=== PATIENT | male | born 1980 | race African-American/Black ===

== ENCOUNTER 2018-11-18 18:17 | Inpatient (IN) ==
[2018-11-18 18:50] LABS: Basophils % 0.8 % (0.0-0.8); Hematocrit 40.7 VOL% (42.0-52.0); Hemoglobin 13.4 GM/DL (14.0-18.0); Immature Granulocytes % 0.3 %; Immature Granulocytes Absolute 0.01 #; Lymphocytes # 0.7 10*3/uL (1.4-4.0); Lymphocytes % 19.5 % (21.2-54.2); Mean Corpuscular HGB Conc 32.9 GM/DL (32-36); Mean Corpuscular Hemoglobin 34 PG (27-34); Mean Platelet Volume 11.5 FL (9.6-12.0); Monocytes # 0.3 10*3/uL (0.11-0.8); Monocytes % 9.2 % (1.7-12.7); Neutrophils # 2.5 10*3/uL (1.4-7.4); Neutrophils % 70.2 % (38.7-73.9); Platelet Count 133 T/CUMM (130-400); Red Blood Count 3.99 MC/CUMM (3.8-5.5); Red Cell Distribution Width 13.2 % (9.3-17.3); White Blood Count 3.6 T/CUMM (4-12)
[2018-11-18 19:16] LABS: Albumin 4.1 G/DL (3.4-5.0); Bilirubin,Total 0.8 MG/DL (0.2-1.0); Calcium 9.2 MG/DL (8.5-10.1); Osmolality,Calculated 276.4 MOS/KG (273-304); Potassium 3.7 MMOL/L (3.5-5.1); Total Protein 8.7 G/DL (6.4-8.3)
[2018-11-18 19:40] LABS: Apearance,Urine CLEAR (Clear); Bilirubin,Urine Negative (Negative); Blood, Urine Negative (Negative); Glucose,Urine (UA) Negative (Negative); Hyaline Casts,Urine 3 /LPF (0-3); Ketones,Urine 5 mg/dL (Negative); Mucus,Urine Occasional /LPF (Occasional); Nitrite,Urine Negative (Negative); Protein,Urine 100 MG/DL; RBC,Urine 1 /HPF (0-4); Squamous Epithelial Cell,Urine Occasional /HPF (0-10); Urine Specific Gravity 1.028 (1.001-1.035); WBC,Urine 1 /HPF (0-6)
[2018-11-18 19:41] LABS: Urine Color Yellow (Yellow)
[2018-11-18 19:44] LABS: Barbiturates Screen,Urine Negative (Negative); Benzodiazepines Screen,Urine Negative (Negative); Cannabinoid Screen,Urine Negative (Negative); Opiate Screen,Urine Negative (Negative); Phencyclidine Screen,Urine Negative (Negative)
[2018-11-18] MEDS ORDERED: LORazepam 2 MG/1 ML VIAL IV STA (21:02)
[2018-11-18] MEDS ORDERED: hydrALAZINE 20 MG/1 ML VIAL IV STA (21:08)
[2018-11-18] MEDS ORDERED: chlordiazePOXIDE 25 MG CAPSULE PO ONE (21:09)
[2018-11-18] MEDS ORDERED: THIAMINE INJ 100 MG, FOLIC ACID INJ 1 MG, MAGNESIUM SULF INJ 2 GM, MULTIVITAMIN INJ 10 ... IV ONE (21:10)
[2018-11-18] MEDS ORDERED: ONDANSETRON 4 MG TABLET PO PRN (21:58)
[2018-11-18] MEDS ORDERED: DICYCLOMINE 10 MG CAPSULE PO PRN (21:58)
[2018-11-18] MEDS ORDERED: METHOCARBAMOL 500 MG TABLET PO PRN (21:58)
[2018-11-18] MEDS ORDERED: LORazepam 2 MG/1 ML VIAL IV PRN ×2 (21:58)
[2018-11-18] MEDS ORDERED: HydrOXYzine PAMOATE 25 MG CAPSULE PO PRN (21:58)
[2018-11-18] MEDS ORDERED: ONDANSETRON 4 MG/2 ML VIAL IV PRN (21:58)
[2018-11-18] MEDS ORDERED: NITROGLYCERIN SL 0.4 MG TABLET SL PRN (22:26)
[2018-11-18] MEDS ORDERED: MORPHINE 4 MG/1 ML VIAL IV PRN (22:26)
[2018-11-18 22:36] LABS: PT Patient Result 10.5 SECS
[2018-11-19] MEDS: ENOXAPARIN 40 MG/0.4 ML SYRINGE SUBCUT SCH ×2 (00:55→21:39)
[2018-11-19 01:32] LABS: Basophils % 0.6 % (0.0-0.8); Eosinophils % 0.3 % (0.00-10.9); Hematocrit 37.6 VOL% (42.0-52.0); Hemoglobin 12.4 GM/DL (14.0-18.0); Immature Granulocytes % 0.3 %; Immature Granulocytes Absolute 0.01 #; Lymphocytes # 1.1 10*3/uL (1.4-4.0); Lymphocytes % 34.1 % (21.2-54.2); Mean Corpuscular Hemoglobin 33 PG (27-34); Mean Corpuscular Volume 100.5 FL (87-102); Monocytes # 0.4 10*3/uL (0.11-0.8); Monocytes % 10.8 % (1.7-12.7); Neutrophils # 1.7 10*3/uL (1.4-7.4); Neutrophils % 53.9 % (38.7-73.9); Platelet Count 117 T/CUMM (130-400); Red Blood Count 3.74 MC/CUMM (3.8-5.5); Red Cell Distribution Width 12.9 % (9.3-17.3); White Blood Count 3.2 T/CUMM (4-12)
[2018-11-19 01:54] LABS: Albumin 3.5 G/DL (3.4-5.0); Bilirubin,Total 0.8 MG/DL (0.2-1.0); Calcium 8.3 MG/DL (8.5-10.1); Osmolality,Calculated 271.7 MOS/KG (273-304); Total Protein 7.5 G/DL (6.4-8.3)
[2018-11-19] MEDS ORDERED: MAGNESIUM SULF RIDER 4 GM in PREMIX 1 EACH IV PRN (02:17)
[2018-11-19] MEDS ORDERED: MAGNESIUM SULF RIDER 2 GM in PREMIX 1 EACH IV PRN (02:17)
[2018-11-19] MEDS: chlordiazePOXIDE 25 MG CAPSULE PO SCH ×4 (02:50→21:39)
[2018-11-19] MEDS: POTASSIUM CHLORIDE 20 MEQ TABLET PO PRN ×4 (02:50→09:01)
[2018-11-19] MEDS: SODIUM CHLORIDE 0.9% 1,000 ML IV SCH ×2 (07:30→20:50)
[2018-11-19] MEDS: MULTIVITAMIN (CENTRUM) TABLET PO SCH (09:00)
[2018-11-19] MEDS: THIAMINE 100 MG TABLET PO SCH (09:00)
[2018-11-19] MEDS: FOLIC ACID 1 MG TABLET PO SCH (09:00)
[2018-11-19] MEDS: LISINOPRIL/HCTZ 20-12.5 MG TABLET PO SCH (09:00)
[2018-11-19] MEDS: ACETAMINOPHEN 500 MG TABLET PO PRN ×2 (11:09→17:40)
[2018-11-20] MEDS: traZODone 50 MG TABLET PO PRN ×2 (00:30→21:39)
[2018-11-20] MEDS: chlordiazePOXIDE 25 MG CAPSULE PO SCH ×3 (04:00→18:34)
[2018-11-20 06:17] LABS: Basophils % 0.7 % (0.0-0.8); Eosinophils # 0.1 10*3/uL (0.0-0.87); Eosinophils % 2.5 % (0.00-10.9); Hematocrit 34.5 VOL% (42.0-52.0); Hemoglobin 11.2 GM/DL (14.0-18.0); Immature Granulocytes % 0.4 %; Immature Granulocytes Absolute 0.01 #; Lymphocytes % 37.8 % (21.2-54.2); Mean Corpuscular HGB Conc 32.5 GM/DL (32-36); Mean Corpuscular Hemoglobin 34 PG (27-34); Mean Corpuscular Volume 103.3 FL (87-102); Mean Platelet Volume 12.4 FL (9.6-12.0); Monocytes # 0.2 10*3/uL (0.11-0.8); Monocytes % 8.4 % (1.7-12.7); Neutrophils # 1.4 10*3/uL (1.4-7.4); Neutrophils % 50.2 % (38.7-73.9); Red Blood Count 3.34 MC/CUMM (3.8-5.5); Red Cell Distribution Width 13.1 % (9.3-17.3); White Blood Count 2.8 T/CUMM (4-12)
[2018-11-20 06:42] LABS: Albumin 2.9 G/DL (3.4-5.0); Bilirubin,Total 0.7 MG/DL (0.2-1.0); Calcium 7.6 MG/DL (8.5-10.1); Osmolality,Calculated 276.3 MOS/KG (273-304); Potassium 3.6 MMOL/L (3.5-5.1); Total Protein 6.2 G/DL (6.4-8.3)
[2018-11-20 06:52] LABS: Platelet Count 97 T/CUMM (130-400)
[2018-11-20 07:39] LABS: Hypochromasia 1+
[2018-11-20 07:40] LABS: Macrocytosis Slight; Platelet Estimate Decreased
[2018-11-20] MEDS: MULTIVITAMIN (CENTRUM) TABLET PO SCH (10:08)
[2018-11-20] MEDS: FOLIC ACID 1 MG TABLET PO SCH (10:08)
[2018-11-20] MEDS: POTASSIUM CHLORIDE 20 MEQ TABLET PO PRN ×2 (10:09→12:40)
[2018-11-20] MEDS: THIAMINE 100 MG TABLET PO SCH (10:09)
[2018-11-20] MEDS: LISINOPRIL/HCTZ 20-12.5 MG TABLET PO SCH (10:09)
[2018-11-20] MEDS: SODIUM CHLORIDE 0.9% 1,000 ML IV SCH ×2 (11:01→23:30)
[2018-11-20] MEDS: cloNIDine 0.1 MG TABLET PO PRN (17:23)
[2018-11-20] MEDS: ENOXAPARIN 40 MG/0.4 ML SYRINGE SUBCUT SCH (21:33)
[2018-11-21] MEDS: chlordiazePOXIDE 25 MG CAPSULE PO SCH ×2 (02:30→11:46)
[2018-11-21 05:54] LABS: Basophils % 0.9 % (0.0-0.8); Eosinophils # 0.1 10*3/uL (0.0-0.87); Eosinophils % 2.7 % (0.00-10.9); Hemoglobin 11.2 GM/DL (14.0-18.0); Immature Granulocytes % 0.3 %; Immature Granulocytes Absolute 0.01 #; Lymphocytes # 1.1 10*3/uL (1.4-4.0); Lymphocytes % 32.2 % (21.2-54.2); Mean Corpuscular HGB Conc 32.9 GM/DL (32-36); Mean Corpuscular Hemoglobin 34 PG (27-34); Mean Corpuscular Volume 103.3 FL (87-102); Mean Platelet Volume 12.3 FL (9.6-12.0); Monocytes # 0.3 10*3/uL (0.11-0.8); Monocytes % 8.9 % (1.7-12.7); Neutrophils # 1.9 10*3/uL (1.4-7.4); Platelet Count 87 T/CUMM (130-400); Red Blood Count 3.29 MC/CUMM (3.8-5.5); Red Cell Distribution Width 13.1 % (9.3-17.3); White Blood Count 3.4 T/CUMM (4-12)
[2018-11-21 06:12] LABS: Calcium 7.9 MG/DL (8.5-10.1); Osmolality,Calculated 277.3 MOS/KG (273-304); Potassium 3.7 MMOL/L (3.5-5.1)
[2018-11-21 07:41] LABS: Anisocytosis 1+; Band Neutrophils 3 % (0-10); Eosinophils 1 % (0-10); Lymphocytes 39 % (20-55); Macrocytosis 2+; Nucleated Red Blood Cells 1 (0-5); Platelet Estimate Decreased; Segmented Neutrophils 51 % (50-85); Total Cells Counted 100
[2018-11-21] MEDS: FOLIC ACID 1 MG TABLET PO SCH (09:28)
[2018-11-21] MEDS: MULTIVITAMIN (CENTRUM) TABLET PO SCH (09:29)
[2018-11-21] MEDS: LISINOPRIL/HCTZ 20-12.5 MG TABLET PO SCH (09:29)
[2018-11-21] MEDS: THIAMINE 100 MG TABLET PO SCH (09:29)
[2018-11-21] MEDS: POTASSIUM CHLORIDE 20 MEQ TABLET PO PRN (11:46)
[2018-11-21] MEDS: SODIUM CHLORIDE 0.9% 1,000 ML IV SCH (13:00)
[2018-11-21 13:10] VITALS: BP 166/96
[2018-11-21] MEDS: cloNIDine 0.1 MG TABLET PO PRN (16:04)
== END 2018-11-21 16:13 | disposition home or self-care (01) | DRG 897 ==
LOC: N.ED 18:17 → N.EDINP 21:54 → N.TELES 22:51
PROVIDERS: ADMIT Internal Medicine; ATTEND Internal Medicine

== ENCOUNTER 2019-01-20 21:49 | Inpatient (IN) ==
[2019-01-20] MEDS ORDERED: SODIUM CHLORIDE 0.9% 1,000 ML IV STA (23:09)
[2019-01-20 23:55] LABS: Basophils % 0.2 % (0.0-0.8); Eosinophils % 0.2 % (0.00-10.9); Hematocrit 40.5 VOL% (42.0-52.0); Hemoglobin 13.3 GM/DL (14.0-18.0); Immature Granulocytes % 0.2 %; Immature Granulocytes Absolute 0.01 #; Lymphocytes # 0.4 10*3/uL (1.4-4.0); Lymphocytes % 5.9 % (21.2-54.2); Mean Corpuscular HGB Conc 32.8 GM/DL (32-36); Mean Corpuscular Hemoglobin 33 PG (27-34); Mean Corpuscular Volume 100.2 FL (87-102); Mean Platelet Volume 11.6 FL (9.6-12.0); Monocytes # 0.6 10*3/uL (0.11-0.8); Monocytes % 9.4 % (1.7-12.7); Neutrophils # 5.6 10*3/uL (1.4-7.4); Neutrophils % 84.1 % (38.7-73.9); Platelet Count 156 T/CUMM (130-400); Red Blood Count 4.04 MC/CUMM (3.8-5.5); Red Cell Distribution Width 14.7 % (9.3-17.3); White Blood Count 6.6 T/CUMM (4-12)
[2019-01-21] MEDS ORDERED: MORPHINE 4 MG/1 ML VIAL IV STA (00:01)
[2019-01-21] MEDS ORDERED: ONDANSETRON 4 MG/2 ML VIAL IV ONE (00:02)
[2019-01-21 00:34] LABS: Bilirubin,Total 1.46 MG/DL (0.2-1.0); Calcium 9.5 MG/DL (8.5-10.1); Total Protein 8.6 G/DL (6.4-8.3)
[2019-01-21 00:35] LABS: Osmolality,Calculated 281.2 MOS/KG (273-304)
[2019-01-21 00:36] LABS: Potassium 4.5 MMOL/L (3.5-5.1)
[2019-01-21] MEDS ORDERED: HYDROmorphone 2 MG/1 ML VIAL IV STA (00:58)
[2019-01-21 01:51] LABS: Apearance,Urine CLEAR (Clear); Bilirubin,Urine Negative (Negative); Blood, Urine Small mg/dL (Negative); Glucose,Urine (UA) 50 mg/dL (Negative); Hyaline Casts,Urine 1 /LPF (0-3); Ketones,Urine 20 mg/dL (Negative); Nitrite,Urine Negative (Negative); Protein,Urine Negative; RBC,Urine <1 /HPF (0-4); Urine Color Yellow (Yellow); Urine Specific Gravity 1.034 (1.001-1.035); Urine Urobilinogen < 2.0 EU/DL (0.2-1.0); WBC,Urine <1 /HPF (0-6)
[2019-01-21 02:27] LABS: Barbiturates Screen,Urine Negative (Negative); Benzodiazepines Screen,Urine Positive (Negative); Cannabinoid Screen,Urine Negative (Negative); Opiate Screen,Urine Positive (Negative); Phencyclidine Screen,Urine Negative (Negative)
[2019-01-21] MEDS ORDERED: diphenhydrAMINE CAP 25 MG CAPSULE PO PRN (02:28)
[2019-01-21] MEDS ORDERED: NICOTINE 21 MG/24 HR PATCH TRANSDERM PRN (02:28)
[2019-01-21] MEDS ORDERED: PROMETHAZINE 25 MG/1 ML VIAL IM PRN (02:28)
[2019-01-21] MEDS ORDERED: SODIUM CHLORIDE 0.9% 1,000 ML IV SCH ×2 (02:30→09:30)
[2019-01-21 02:49] LABS: Risk Ratio 1.71; VLDL CHOLESTEROL 16.4 MG/DL
[2019-01-21] MEDS: MORPHINE 4 MG/1 ML VIAL IV PRN ×2 (04:12→06:04)
[2019-01-21] MEDS: ONDANSETRON 4 MG/2 ML VIAL IV PRN ×2 (04:14→20:47)
[2019-01-21] MEDS: LORazepam 2 MG/1 ML VIAL IV PRN ×2 (04:14→20:47)
[2019-01-21 06:22] LABS: Albumin 3.6 G/DL (3.4-5.0); Bilirubin,Total 1.9 MG/DL (0.2-1.0); Calcium 8.5 MG/DL (8.5-10.1); Osmolality,Calculated 278.2 MOS/KG (273-304); Potassium 4.5 MMOL/L (3.5-5.1); Total Protein 7.7 G/DL (6.4-8.3)
[2019-01-21 07:22] LABS: % Iron Saturation 50.2 % (18-50)
[2019-01-21] MEDS: HYDROmorphone 2 MG/1 ML VIAL IV PRN ×3 (08:03→20:42)
[2019-01-21 08:39] LABS: Hepatitis A Ab IgM Quant 0.24 Index; Hepatitis A Ab IgM Result Negative (Negative); Hepatitis B Core IgM Quant 0.07 Index; Hepatitis B Core IgM Result Negative (Negative); Hepatitis B Surface Ag Quant < 0.10 Index; Hepatitis B Surface Ag Result Negative (Negative); Hepatitis C Virus Ab Quant 0.11 Index; Hepatitis C Virus Ab Result Negative (Negative)
[2019-01-21] MEDS ORDERED: LISINOPRIL/HCTZ 20-12.5 MG TABLET PO SCH (09:00)
[2019-01-21] MEDS ORDERED: MULTIVITAMIN (CENTRUM) TABLET PO SCH (09:00)
[2019-01-21] MEDS ORDERED: FOLIC ACID 1 MG TABLET PO SCH (09:00)
[2019-01-21] MEDS ORDERED: PANTOPRAZOLE 40 MG TABLET PO SCH (09:00)
[2019-01-21] MEDS ORDERED: FOLIC ACID INJ 1 MG in SYRINGE 1 EACH IV SCH (09:30)
[2019-01-21] MEDS ORDERED: THIAMINE 200 MG/2 ML VIAL IV SCH (09:30)
[2019-01-21] MEDS ORDERED: MULTIVITAMIN INJ 10 ML in DEXTROSE 5% 1,000 ML IV SCH (09:30)
[2019-01-21] MEDS: PANTOPRAZOLE 40 MG VIAL IV SCH (10:02)
[2019-01-21] MEDS: MULTIVITAMIN IV SCH ×3 (10:03→17:42)
[2019-01-21] MEDS: THIAMINE IV SCH ×3 (10:03→17:42)
[2019-01-21] MEDS: FOLIC ACID IV SCH ×3 (10:03→17:42)
[2019-01-21] MEDS: [UNRECOGNIZED DRUG - OTHER] IV SCH ×3 (10:03→17:42)
[2019-01-21] MEDS ORDERED: chlordiazePOXIDE 10 MG CAPSULE PO PRN (14:27)
[2019-01-21] MEDS: hydrALAZINE 20 MG/1 ML VIAL IV PRN (14:54)
[2019-01-21] MEDS ORDERED: MULTIVITAMIN INJ 10 ML in LACTATED RINGERS 1,000 ML IV SCH (17:30)
[2019-01-21] MEDS: amLODIPine 5 MG TABLET PO SCH (20:54)
[2019-01-22] MEDS: HYDROmorphone 2 MG/1 ML VIAL IV PRN ×4 (00:45→17:06)
[2019-01-22] MEDS: LORazepam 2 MG/1 ML VIAL IV PRN (00:50)
[2019-01-22] MEDS: hydrALAZINE 20 MG/1 ML VIAL IV PRN (02:52)
[2019-01-22 06:10] LABS: Basophils % 0.3 % (0.0-0.8); Eosinophils % 0.2 % (0.00-10.9); Hematocrit 40.3 VOL% (42.0-52.0); Hemoglobin 13.4 GM/DL (14.0-18.0); Immature Granulocytes % 0.3 %; Immature Granulocytes Absolute 0.03 #; Lymphocytes # 0.4 10*3/uL (1.4-4.0); Lymphocytes % 3.9 % (21.2-54.2); Mean Corpuscular HGB Conc 33.3 GM/DL (32-36); Mean Corpuscular Hemoglobin 33 PG (27-34); Mean Corpuscular Volume 100.2 FL (87-102); Mean Platelet Volume 12.1 FL (9.6-12.0); Monocytes # 0.8 10*3/uL (0.11-0.8); Monocytes % 7.8 % (1.7-12.7); Neutrophils # 9.1 10*3/uL (1.4-7.4); Neutrophils % 87.5 % (38.7-73.9); Platelet Count 140 T/CUMM (130-400); Red Blood Count 4.02 MC/CUMM (3.8-5.5); Red Cell Distribution Width 14.6 % (9.3-17.3); White Blood Count 10.4 T/CUMM (4-12)
[2019-01-22 06:38] LABS: Calcium 8.8 MG/DL (8.5-10.1); Osmolality,Calculated 269.4 MOS/KG (273-304); Potassium 5.1 MMOL/L (3.5-5.1)
[2019-01-22 06:42] LABS: Lymphocytes 9 % (20-55); Total Cells Counted 100
[2019-01-22 06:43] LABS: Platelet Estimate Adequate; Segmented Neutrophils 87 % (50-85)
[2019-01-22] MEDS ORDERED: ENOXAPARIN 40 MG/0.4 ML SYRINGE SUBCUT SCH (09:30)
[2019-01-22] MEDS ORDERED: LACTATED RINGERS 1,000 ML IV SCH (09:30)
[2019-01-22] MEDS: PANTOPRAZOLE 40 MG VIAL IV SCH (09:58)
[2019-01-22] MEDS: amLODIPine 5 MG TABLET PO SCH ×2 (09:58→20:56)
[2019-01-22] MEDS ORDERED: ACETAMINOPHEN 325 MG TABLET PO PRN (20:33)
[2019-01-23] MEDS: LORazepam 2 MG/1 ML VIAL IV PRN ×3 (00:49→23:45)
[2019-01-23] MEDS: HYDROmorphone 2 MG/1 ML VIAL IV PRN (02:42)
[2019-01-23] MEDS: hydrALAZINE 20 MG/1 ML VIAL IV PRN (02:53)
[2019-01-23 05:53] LABS: Basophils % 0.2 % (0.0-0.8); Eosinophils # 0.1 10*3/uL (0.0-0.87); Eosinophils % 0.8 % (0.00-10.9); Hematocrit 36.2 VOL% (42.0-52.0); Hemoglobin 12.1 GM/DL (14.0-18.0); Immature Granulocytes % 0.6 %; Immature Granulocytes Absolute 0.05 #; Lymphocytes # 0.8 10*3/uL (1.4-4.0); Lymphocytes % 8.9 % (21.2-54.2); Mean Corpuscular HGB Conc 33.4 GM/DL (32-36); Mean Corpuscular Hemoglobin 33 PG (27-34); Mean Corpuscular Volume 98.9 FL (87-102); Mean Platelet Volume 12.8 FL (9.6-12.0); Monocytes # 0.7 10*3/uL (0.11-0.8); Monocytes % 8.1 % (1.7-12.7); Neutrophils # 6.9 10*3/uL (1.4-7.4); Neutrophils % 81.4 % (38.7-73.9); Red Blood Count 3.66 MC/CUMM (3.8-5.5); Red Cell Distribution Width 14.5 % (9.3-17.3); White Blood Count 8.4 T/CUMM (4-12)
[2019-01-23 06:09] LABS: Calcium 8.6 MG/DL (8.5-10.1); Osmolality,Calculated 270.1 MOS/KG (273-304)
[2019-01-23 06:13] LABS: Platelet Count 105 T/CUMM (130-400)
[2019-01-23 06:28] LABS: Band Neutrophils 5 % (0-10); Lymphocytes 7 % (20-55); Segmented Neutrophils 82 % (50-85); Total Cells Counted 100
[2019-01-23 06:29] LABS: Hypochromasia Slight; Macrocytosis Slight
[2019-01-23 06:30] LABS: Platelet Estimate Decreased
[2019-01-23] MEDS: PANTOPRAZOLE 40 MG VIAL IV SCH (09:22)
[2019-01-23] MEDS: amLODIPine 5 MG TABLET PO SCH ×2 (09:22→20:50)
[2019-01-24] MEDS: ACETAMINOPHEN 325 MG TABLET PO PRN ×2 (02:59→08:07)
[2019-01-24 05:44] LABS: Basophils % 0.2 % (0.0-0.8); Eosinophils # 0.1 10*3/uL (0.0-0.87); Eosinophils % 1.4 % (0.00-10.9); Hematocrit 36.2 VOL% (42.0-52.0); Hemoglobin 12.3 GM/DL (14.0-18.0); Immature Granulocytes % 0.5 %; Immature Granulocytes Absolute 0.04 #; Lymphocytes # 0.8 10*3/uL (1.4-4.0); Lymphocytes % 9.8 % (21.2-54.2); Mean Corpuscular Hemoglobin 33 PG (27-34); Mean Corpuscular Volume 96.8 FL (87-102); Mean Platelet Volume 12.8 FL (9.6-12.0); Monocytes # 0.7 10*3/uL (0.11-0.8); Monocytes % 7.7 % (1.7-12.7); Neutrophils # 6.8 10*3/uL (1.4-7.4); Neutrophils % 80.4 % (38.7-73.9); Platelet Count 116 T/CUMM (130-400); Red Blood Count 3.74 MC/CUMM (3.8-5.5); Red Cell Distribution Width 13.6 % (9.3-17.3); White Blood Count 8.4 T/CUMM (4-12)
[2019-01-24 06:05] LABS: Calcium 8.5 MG/DL (8.5-10.1); Osmolality,Calculated 264.4 MOS/KG (273-304); Potassium 3.7 MMOL/L (3.5-5.1)
[2019-01-24 08:00] VITALS: BP 142/88
[2019-01-24] MEDS: amLODIPine 5 MG TABLET PO SCH (08:06)
[2019-01-24] MEDS: PANTOPRAZOLE 40 MG VIAL IV SCH (08:06)
[2019-01-24] MEDS: LORazepam 2 MG/1 ML VIAL IV PRN (08:07)
== END 2019-01-24 11:00 | disposition home or self-care (01) | DRG 439 ==
LOC: N.ED 21:49 → N.EDINP 01-21 02:28 → N.5E 01-21 03:13
PROVIDERS: ADMIT Internal Medicine; ATTEND Internal Medicine

== ENCOUNTER 2019-05-12 16:21 | Inpatient (IN) ==
[2019-05-12] MEDS ORDERED: SODIUM CHLORIDE 0.9% 1,000 ML IV STA (18:21)
[2019-05-12] MEDS ORDERED: PROMETHAZINE 25 MG/1 ML VIAL IM PRN (19:39)
[2019-05-12] MEDS ORDERED: ONDANSETRON 4 MG/2 ML VIAL IV PRN (19:39)
[2019-05-12] MEDS ORDERED: SODIUM CHLORIDE 0.9% 1,000 ML IV SCH (20:00)
[2019-05-12] MEDS ORDERED: SODIUM CHLORIDE 0.45% 1,000 ML IV SCH ×2 (20:00)
[2019-05-12] MEDS: MORPHINE 4 MG/1 ML VIAL IV PRN (20:43)
[2019-05-12] MEDS: LACTATED RINGERS 1,000 ML IV SCH (20:43)
[2019-05-12] MEDS: ENOXAPARIN 40 MG/0.4 ML SYRINGE SUBCUT SCH (22:21)
[2019-05-12] MEDS: LORazepam 2 MG/1 ML VIAL IV PRN (22:21)
[2019-05-13] MEDS: LACTATED RINGERS 1,000 ML IV SCH ×5 (00:52→15:55)
[2019-05-13] MEDS: MORPHINE 4 MG/1 ML VIAL IV PRN ×3 (03:59→18:13)
[2019-05-13 04:40] LABS: Basophils % 0.2 % (0.0-0.8); Hematocrit 35.3 VOL% (42.0-52.0); Hemoglobin 11.5 GM/DL (14.0-18.0); Immature Granulocytes % 0.2 %; Immature Granulocytes Absolute 0.01 #; Lymphocytes # 0.7 10*3/uL (1.4-4.0); Lymphocytes % 18.2 % (21.2-54.2); Mean Corpuscular HGB Conc 32.6 GM/DL (32-36); Mean Corpuscular Volume 98.1 FL (87-102); Mean Platelet Volume 11.1 FL (9.6-12.0); Neutrophils % 71.4 % (38.7-73.9); Platelet Count 126 T/CUMM (130-400); Red Cell Distribution Width 14.6 % (9.3-17.3)
[2019-05-13 05:17] LABS: Albumin 3.2 G/DL (3.4-5.0); Bilirubin,Total 1.4 MG/DL (0.2-1.0); Calcium 8.9 MG/DL (8.5-10.1); Osmolality,Calculated 276.8 MOS/KG (273-304); Risk Ratio 1.77; Total Protein 6.5 G/DL (6.4-8.3); VLDL CHOLESTEROL 18.6 MG/DL
[2019-05-13] MEDS: THIAMINE 100 MG TABLET PO SCH (10:07)
[2019-05-13] MEDS: FOLIC ACID 1 MG TABLET PO SCH (10:08)
[2019-05-13] MEDS: MULTIVITAMIN (CENTRUM) TABLET PO SCH (10:08)
[2019-05-13] MEDS: LORazepam 2 MG/1 ML VIAL IV PRN ×2 (10:17→21:01)
[2019-05-13] MEDS ORDERED: DOCUSATE/SENNA 50-8.6 MG TABLET PO SCH (11:30)
[2019-05-13] MEDS: LISINOPRIL/HCTZ 20-12.5 MG TABLET PO SCH (11:52)
[2019-05-13] MEDS ORDERED: MAGNESIUM SULF RIDER 2 GM in PREMIX 1 EACH IV PRN (13:33)
[2019-05-13] MEDS ORDERED: MAGNESIUM SULF RIDER 4 GM in PREMIX 1 EACH IV PRN (13:33)
[2019-05-13] MEDS: amLODIPine 5 MG TABLET PO SCH (15:56)
[2019-05-13] MEDS ORDERED: HYDROmorphone 2 MG/1 ML VIAL IV PRN (18:42)
[2019-05-13] MEDS: ENOXAPARIN 40 MG/0.4 ML SYRINGE SUBCUT SCH (20:54)
[2019-05-13] MEDS: hydrALAZINE 20 MG/1 ML VIAL IV PRN (20:54)
[2019-05-14] MEDS: LACTATED RINGERS 1,000 ML IV SCH ×4 (00:11→08:13)
[2019-05-14] MEDS: hydrALAZINE 20 MG/1 ML VIAL IV PRN ×2 (02:59→11:37)
[2019-05-14 07:18] LABS: Basophils % 0.4 % (0.0-0.8); Eosinophils # 0.1 10*3/uL (0.0-0.87); Eosinophils % 1.1 % (0.00-10.9); Hematocrit 37.1 VOL% (42.0-52.0); Hemoglobin 12.4 GM/DL (14.0-18.0); Immature Granulocytes % 0.2 %; Immature Granulocytes Absolute 0.01 #; Lymphocytes # 0.6 10*3/uL (1.4-4.0); Lymphocytes % 13.1 % (21.2-54.2); Mean Corpuscular HGB Conc 33.4 GM/DL (32-36); Mean Corpuscular Volume 96.1 FL (87-102); Mean Platelet Volume 12.3 FL (9.6-12.0); Monocytes % 6.8 % (1.7-12.7); Neutrophils % 78.4 % (38.7-73.9); Platelet Count 97 T/CUMM (130-400); Red Blood Count 3.86 MC/CUMM (3.8-5.5); Red Cell Distribution Width 13.9 % (9.3-17.3); White Blood Count 4.7 T/CUMM (4-12)
[2019-05-14 07:28] LABS: Albumin 3.2 G/DL (3.4-5.0); Bilirubin,Total 0.7 MG/DL (0.2-1.0); Calcium 9.1 MG/DL (8.5-10.1); Osmolality,Calculated 261.5 MOS/KG (273-304); Total Protein 6.7 G/DL (6.4-8.3)
[2019-05-14 07:53] LABS: Hypochromasia 1+; Platelet Estimate Decreased
[2019-05-14] MEDS ORDERED: ACETAMINOPHEN 325 MG TABLET PO PRN (09:05)
[2019-05-14] MEDS ORDERED: diphenhydrAMINE CAP 25 MG CAPSULE PO PRN (09:06)
[2019-05-14] MEDS: FOLIC ACID 1 MG TABLET PO SCH (09:06)
[2019-05-14] MEDS: THIAMINE 100 MG TABLET PO SCH (09:06)
[2019-05-14] MEDS: MULTIVITAMIN (CENTRUM) TABLET PO SCH (09:06)
[2019-05-14] MEDS: LISINOPRIL/HCTZ 20-12.5 MG TABLET PO SCH (09:06)
[2019-05-14] MEDS: amLODIPine 5 MG TABLET PO SCH (09:06)
[2019-05-14 12:13] VITALS: BP 154/98
== END 2019-05-14 14:08 | disposition home or self-care (01) | DRG 439 ==
LOC: N.ED 16:21 → N.EDINP 19:39 → N.5E 21:19
PROVIDERS: ADMIT Internal Medicine; ATTEND Internal Medicine

== ENCOUNTER 2019-11-05 22:30 | Inpatient (IN) ==
[2019-11-05] MEDS ORDERED: ALUM/MAG/SIMETH/LIDO VISC 1:1 30 ML BOTTLE PO STA (23:05)
[2019-11-05 23:11] LABS: Basophils % 0.5 % (0.0-0.8); Hematocrit 41.8 VOL% (42.0-52.0); Hemoglobin 13.8 GM/DL (14.0-18.0); Immature Granulocytes % 0.3 %; Immature Granulocytes Absolute 0.01 #; Lymphocytes # 0.7 10*3/uL (1.4-4.0); Lymphocytes % 17.7 % (21.2-54.2); Mean Corpuscular Volume 97.2 FL (87-102); Mean Platelet Volume 10.8 FL (9.6-12.0); Monocytes % 6.2 % (1.7-12.7); Neutrophils % 75.3 % (38.7-73.9); Platelet Count 122 T/CUMM (130-400); Red Cell Distribution Width 14.1 % (9.3-17.3); White Blood Count 3.7 T/CUMM (4-12)
[2019-11-05 23:25] LABS: Albumin 3.8 G/DL (3.4-5.0); Bilirubin,Total 0.6 MG/DL (0.2-1.0); Calcium 8.4 MG/DL (8.5-10.1); Osmolality,Calculated 273.7 MOS/KG (273-304); Total Protein 7.5 G/DL (6.4-8.3)
[2019-11-05] MEDS ORDERED: ACETAMINOPHEN 500 MG TABLET PO STA (23:29)
[2019-11-05] MEDS ORDERED: THIAMINE INJ 100 MG, FOLIC ACID INJ 1 MG, MAGNESIUM SULF INJ 2 GM, MULTIVITAMIN INJ 10 ... IV ONE (23:49)
[2019-11-05] MEDS ORDERED: MORPHINE 4 MG/1 ML VIAL IV STA (23:49)
[2019-11-05] MEDS ORDERED: ONDANSETRON 4 MG/2 ML VIAL IV ONE (23:49)
[2019-11-06] MEDS ORDERED: SODIUM CHLORIDE 0.9% 2,450 ML IV ONE (02:55)
[2019-11-06 04:43] LABS: Apearance,Urine CLEAR (Clear); Bilirubin,Urine Negative (Negative); Blood, Urine Negative (Negative); Glucose,Urine (UA) Negative (Negative); Ketones,Urine 20 mg/dL (Negative); Mucus,Urine Occasional /LPF (Occasional); Nitrite,Urine Negative (Negative); Protein,Urine 100 MG/DL; RBC,Urine 2 /HPF (0-4); Urine Color Yellow (Yellow); Urine Specific Gravity > 1.060 (1.001-1.035); WBC,Urine <1 /HPF (0-6)
[2019-11-06 07:17] LABS: Barbiturates Screen,Urine Negative (Negative); Benzodiazepines Screen,Urine Negative (Negative); Cannabinoid Screen,Urine Negative (Negative); Opiate Screen,Urine Positive (Negative); Phencyclidine Screen,Urine Negative (Negative)
[2019-11-06] MEDS: LISINOPRIL 10 MG TABLET PO SCH (08:16)
[2019-11-06] MEDS: PANTOPRAZOLE 40 MG VIAL IV SCH (09:01)
[2019-11-06] MEDS: chlordiazePOXIDE 25 MG CAPSULE PO SCH ×3 (09:01→22:31)
[2019-11-06 09:06] LABS: Albumin 2.9 G/DL (3.4-5.0); Bilirubin,Direct 0.25 MG/DL (0.0-0.20); Bilirubin,Indirect 0.5 MG/DL (0.0-1.0); Bilirubin,Total 0.7 MG/DL (0.2-1.0); Calcium 7.1 MG/DL (8.5-10.1); Osmolality,Calculated 270.7 MOS/KG (273-304); Total Protein 6.1 G/DL (6.4-8.3)
[2019-11-06] MEDS: HYDROmorphone 2 MG/1 ML VIAL IM PRN ×3 (09:10→19:45)
[2019-11-06] MEDS: LACTATED RINGERS 1,000 ML IV SCH ×2 (12:11→16:01)
[2019-11-06] MEDS: hydrALAZINE 25 MG TABLET PO PRN (19:46)
[2019-11-07] MEDS: HYDROmorphone 2 MG/1 ML VIAL IV PRN ×3 (01:09→20:38)
[2019-11-07] MEDS: chlordiazePOXIDE 25 MG CAPSULE PO SCH ×4 (04:37→20:38)
[2019-11-07] MEDS: LISINOPRIL 10 MG TABLET PO SCH (09:03)
[2019-11-07] MEDS: PANTOPRAZOLE 40 MG VIAL IV SCH (09:03)
[2019-11-07] MEDS ORDERED: SODIUM CHLORIDE 0.45% 1,000 ML IV SCH (15:00)
[2019-11-07] MEDS: LORazepam 1 MG TABLET PO PRN ×2 (15:53→20:38)
[2019-11-07] MEDS: DOCUSATE SODIUM 100 MG CAPSULE PO SCH (20:37)
[2019-11-07] MEDS ORDERED: LORazepam 2 MG/1 ML VIAL IV ONE (23:44)
[2019-11-08] MEDS: chlordiazePOXIDE 25 MG CAPSULE PO SCH ×2 (03:59→08:17)
[2019-11-08] MEDS: LORazepam 1 MG TABLET PO PRN (04:22)
[2019-11-08 06:24] LABS: Albumin 2.8 G/DL (3.4-5.0); Bilirubin,Total 0.8 MG/DL (0.2-1.0); Calcium 8.4 MG/DL (8.5-10.1); Osmolality,Calculated 264.2 MOS/KG (273-304); Total Protein 6.2 G/DL (6.4-8.3)
[2019-11-08] MEDS: DOCUSATE SODIUM 100 MG CAPSULE PO SCH (08:16)
[2019-11-08] MEDS: hydrALAZINE 25 MG TABLET PO PRN (08:16)
[2019-11-08] MEDS: LISINOPRIL 10 MG TABLET PO SCH (08:16)
[2019-11-08] MEDS: PANTOPRAZOLE 40 MG VIAL IV SCH (08:17)
[2019-11-08] MEDS ORDERED: amLODIPine 5 MG TABLET PO SCH (09:48)
[2019-11-08] MEDS ORDERED: POTASSIUM CHLORIDE 20 MEQ TABLET PO PRN (10:01)
[2019-11-08] MEDS ORDERED: chlordiazePOXIDE 25 MG CAPSULE PO SCH (15:00)
[2019-11-08] MEDS ORDERED: hydrALAZINE 25 MG TABLET PO SCH (15:00)
[2019-11-08 15:40] VITALS: BP 159/74
== END 2019-11-08 17:05 | disposition home or self-care (01) | DRG 439 ==
LOC: N.ED 22:30 → N.EDINP 11-06 03:31 → N.4E 11-06 07:46
PROVIDERS: ADMIT Internal Medicine; ATTEND Internal Medicine

== ENCOUNTER 2021-10-17 20:37 | Inpatient (IN) ==
[2021-10-17] MEDS ORDERED: ONDANSETRON 4 MG/2 ML VIAL IV STA ×2 (21:49→23:55)
[2021-10-17] MEDS ORDERED: ALUM/MAG/SIMETH/LIDO VISC 1:1 30 ML BOTTLE PO STA (21:49)
[2021-10-17] MEDS ORDERED: PANTOPRAZOLE 40 MG VIAL IV STA (21:49)
[2021-10-17] MEDS ORDERED: SODIUM CHLORIDE 0.9% 1,000 ML IV STA (21:49)
[2021-10-17 22:05] LABS: Basophils % 0.2 % (0.0-0.8); Eosinophils # 0.1 10*3/uL (0.0-0.87); Eosinophils % 2.7 % (0.00-10.9); Hematocrit 37.9 VOL% (42.0-52.0); Immature Granulocytes % 0.2 %; Immature Granulocytes Absolute 0.01 #; Lymphocytes # 0.9 10*3/uL (1.4-4.0); Lymphocytes % 19.6 % (21.2-54.2); Mean Corpuscular HGB Conc 31.7 GM/DL (32-36); Mean Corpuscular Volume 96.2 FL (87-102); Mean Platelet Volume 10.9 FL (9.6-12.0); Monocytes % 8.8 % (1.7-12.7); Neutrophils % 68.5 % (38.7-73.9); Platelet Count 153 T/CUMM (130-400); Red Blood Count 3.94 MC/CUMM (3.8-5.5); Red Cell Distribution Width 14.6 % (9.3-17.3); White Blood Count 4.8 T/CUMM (4-12)
[2021-10-17 22:15] LABS: Bilirubin,Urine Negative (Negative); Blood, Urine Negative (Negative); Glucose,Urine (UA) Negative (Negative); Ketones,Urine Negative (Negative); Mucus,Urine Occasional /LPF (Occasional); Nitrite,Urine Negative (Negative); Protein,Urine Negative; RBC,Urine <1 /HPF (0-4); Urine Appearance CLEAR (Clear); Urine Color Yellow (Yellow); Urine Specific Gravity 1.015 (1.001-1.035); Urine Urobilinogen < 2.0 EU/DL (0.2-1.0)
[2021-10-17 22:26] LABS: Alanine Aminotransferase 54 U/L (16-61); Albumin 3.2 G/DL (3.4-5.0); Alkaline Phosphatase 80 U/L (45-117); Amylase 133 U/L (25-115); Aspartate Amino Transferase 53 U/L (0-37); Blood Urea Nitrogen 22 MG/DL (7-18); Calcium 8.4 MG/DL (8.5-10.1); Carbon Dioxide 32 MMOL/L (21-32); Estimated Glom Filtration Rate 45 ML/MIN; Glucose 99 MG/DL (74-106); Osmolality,Calculated 279.5 MOS/KG (273-304); Potassium 4.2 MMOL/L (3.5-5.1); Sodium 139 MMOL/L (136-145); Total Protein 7.3 G/DL (6.4-8.2)
[2021-10-17] MEDS ORDERED: KETOROLAC 30 MG/1 ML VIAL IV STA (23:24)
[2021-10-17] MEDS ORDERED: KETOROLAC 30 MG/1 ML VIAL ONE (23:24)
[2021-10-17] MEDS ORDERED: HYDROmorphone 2 MG/1 ML VIAL IV ONE (23:55)
[2021-10-18] MEDS ORDERED: hydrALAZINE 20 MG/1 ML VIAL ONE (00:29)
[2021-10-18] MEDS ORDERED: hydrALAZINE 20 MG/1 ML VIAL IV STA ×2 (00:34→01:15)
[2021-10-18] MEDS ORDERED: GLUCAGON 1 MG VIAL IM PRN (00:45)
[2021-10-18] MEDS ORDERED: ONDANSETRON 4 MG/2 ML VIAL IV PRN (00:45)
[2021-10-18] MEDS ORDERED: MAGNESIUM SULF RIDER 2 GM/50 ML PREMIX IV ONE (00:52)
[2021-10-18] MEDS ORDERED: DEXTROSE 50% 25 GM/50 ML SYRINGE IV PRN (00:53)
[2021-10-18] MEDS: SODIUM CHLORIDE 0.9% 1,000 ML IV SCH ×3 (01:18→23:15)
[2021-10-18 02:01] LABS: Barbiturates Screen,Urine Negative (Negative); Benzodiazepines Screen,Urine Negative (Negative); Cannabinoid Screen,Urine Negative (Negative); Opiate Screen,Urine Negative (Negative); Phencyclidine Screen,Urine Negative (Negative)
[2021-10-18 07:18] LABS: Basophils % 0.3 % (0.0-0.8); Eosinophils # 0.1 10*3/uL (0.0-0.87); Eosinophils % 1.7 % (0.00-10.9); Hematocrit 35.6 VOL% (42.0-52.0); Hemoglobin 11.4 GM/DL (14.0-18.0); Immature Granulocytes % 0.3 %; Immature Granulocytes Absolute 0.01 #; Lymphocytes # 0.9 10*3/uL (1.4-4.0); Lymphocytes % 24.9 % (21.2-54.2); Mean Corpuscular Volume 97.3 FL (87-102); Monocytes % 6.8 % (1.7-12.7); Platelet Count 130 T/CUMM (130-400); Red Blood Count 3.66 MC/CUMM (3.8-5.5); Red Cell Distribution Width 14.6 % (9.3-17.3); White Blood Count 3.5 T/CUMM (4-12)
[2021-10-18 07:34] LABS: Albumin 2.9 G/DL (3.4-5.0); Bilirubin,Total 0.6 MG/DL (0.20-1.00); Calcium 8.4 MG/DL (8.5-10.1); Osmolality,Calculated 275.8 MOS/KG (273-304); Potassium 3.9 MMOL/L (3.5-5.1); Total Protein 6.9 G/DL (6.4-8.2)
[2021-10-18] MEDS: THIAMINE 100 MG TABLET PO SCH (08:12)
[2021-10-18] MEDS: PANTOPRAZOLE 40 MG TABLET PO SCH (08:12)
[2021-10-18] MEDS: FOLIC ACID 1 MG TABLET PO SCH (08:12)
[2021-10-18] MEDS ORDERED: diphenhydrAMINE 50 MG/1 ML VIAL IV ONE (08:27)
[2021-10-18] MEDS ORDERED: methylPREDNISolone SOD SUC 125 MG/2 ML VIAL IM ONE (08:28)
[2021-10-18] MEDS: LORazepam 1 MG TABLET PO PRN (12:06)
[2021-10-18] MEDS: HYDROmorphone 2 MG/1 ML VIAL IV PRN ×2 (14:50→23:16)
[2021-10-18] MEDS: hydrALAZINE 20 MG/1 ML VIAL IV PRN ×2 (17:07→20:57)
[2021-10-18] MEDS: diphenhydrAMINE CAP 25 MG CAPSULE PO PRN ×2 (20:57→23:21)
[2021-10-19] MEDS: LORazepam 1 MG TABLET PO PRN (03:51)
[2021-10-19] MEDS: diphenhydrAMINE CAP 25 MG CAPSULE PO PRN ×2 (03:51→08:43)
[2021-10-19 06:56] LABS: Hematocrit 35.4 VOL% (42.0-52.0); Hemoglobin 11.7 GM/DL (14.0-18.0); Immature Granulocytes % 0.4 %; Immature Granulocytes Absolute 0.02 #; Lymphocytes # 0.5 10*3/uL (1.4-4.0); Lymphocytes % 11.3 % (21.2-54.2); Mean Corpuscular HGB Conc 33.1 GM/DL (32-36); Mean Corpuscular Volume 95.7 FL (87-102); Mean Platelet Volume 10.5 FL (9.6-12.0); Monocytes % 7.1 % (1.7-12.7); Neutrophils % 81.2 % (38.7-73.9); Platelet Count 182 T/CUMM (130-400); Red Cell Distribution Width 14.2 % (9.3-17.3); White Blood Count 4.5 T/CUMM (4-12)
[2021-10-19 07:14] LABS: Albumin 2.6 G/DL (3.4-5.0); Calcium 7.9 MG/DL (8.5-10.1); Osmolality,Calculated 271.2 MOS/KG (273-304); Potassium 4.2 MMOL/L (3.5-5.1); Total Protein 6.6 G/DL (6.4-8.2)
[2021-10-19] MEDS: FOLIC ACID 1 MG TABLET PO SCH (08:41)
[2021-10-19] MEDS: THIAMINE 100 MG TABLET PO SCH (08:42)
[2021-10-19] MEDS: PANTOPRAZOLE 40 MG TABLET PO SCH (08:42)
[2021-10-19] MEDS: SODIUM CHLORIDE 0.9% 1,000 ML IV SCH (10:54)
[2021-10-19 12:25] VITALS: BP 151/100
[2021-10-19] MEDS: hydrALAZINE 20 MG/1 ML VIAL IV PRN (12:29)
== END 2021-10-19 13:17 | disposition home or self-care (01) | DRG 439 ==
LOC: N.ED 20:37 → SUATTDRO 10-18 00:45 → N.EDINP 10-18 00:45 → N.TELES 10-18 03:19
PROVIDERS: ADMIT Internal Medicine; ATTEND Internal Medicine

== ENCOUNTER 2022-10-14 20:45 | Inpatient (IN) ==
[2022-10-14] MEDS ORDERED: SODIUM CHLORIDE 0.9% 1,000 ML IV STA (21:10)
[2022-10-14 21:28] LABS: Basophils % 0.6 % (0.0-0.8); Eosinophils # 0.1 10*3/uL (0.0-0.87); Eosinophils % 1.5 % (0.00-10.9); Hematocrit 34.1 VOL% (42.0-52.0); Hemoglobin 10.8 GM/DL (14.0-18.0); Immature Granulocytes % 0.4 %; Immature Granulocytes Absolute 0.02 #; Lymphocytes # 1.5 10*3/uL (1.4-4.0); Lymphocytes % 31.5 % (21.2-54.2); Mean Corpuscular HGB Conc 31.7 GM/DL (32-36); Mean Corpuscular Volume 93.4 FL (87-102); Mean Platelet Volume 9.8 FL (9.6-12.0); Monocytes # 0.5 10*3/uL (0.11-0.8); Monocytes % 9.9 % (1.7-12.7); Neutrophils % 56.1 % (38.7-73.9); Platelet Count 152 T/CUMM (130-400); Red Blood Count 3.65 MC/CUMM (3.8-5.5); White Blood Count 4.7 T/CUMM (4-12)
[2022-10-14 21:53] LABS: Albumin 3.4 G/DL (3.4-5.0); Bilirubin,Total 0.5 MG/DL (0.20-1.00); Calcium 8.3 MG/DL (8.5-10.1); Osmolality,Calculated 277.4 MOS/KG (273-304); Potassium 3.5 MMOL/L (3.5-5.1); Total Protein 7.4 G/DL (6.4-8.2)
[2022-10-14] MEDS ORDERED: MORPHINE 2 MG/1 ML SYRINGE IV STA (23:45)
[2022-10-15] MEDS ORDERED: ALUMINUM/MAGNES/SIMETH MAX STR 30 ML UDCUP PO PRN (00:11)
[2022-10-15] MEDS ORDERED: ONDANSETRON 4 MG/2 ML VIAL IV PRN (00:11)
[2022-10-15] MEDS ORDERED: hydrALAZINE 20 MG/1 ML VIAL IV PRN (00:11)
[2022-10-15] MEDS ORDERED: THIAMINE INJ 100 MG, FOLIC ACID INJ 1 MG, MULTIVITAMIN INJ 10 ML in SODIUM CHLORIDE 0.9... IV ONE (00:24)
[2022-10-15] MEDS ORDERED: SODIUM BICARB INJ 50 MEQ in SODIUM CHLORIDE 0.45% 1,000 ML IV SCH (00:30)
[2022-10-15] MEDS ORDERED: LACTATED RINGERS 1,000 ML IV SCH (00:30)
[2022-10-15] MEDS ORDERED: levETIRAcetam 500 MG/5 ML VIAL IV STA (00:58)
[2022-10-15 01:10] LABS: Hyaline Casts,Urine 1 /LPF (0-3); Mucus,Urine Occasional /LPF (Occasional); RBC,Urine <1 /HPF (0-4)
[2022-10-15 01:12] LABS: Bilirubin,Urine Negative (Negative); Glucose,Urine (UA) Negative (Negative); Ketones,Urine Trace mg/dL (Negative); Nitrite,Urine Negative (Negative); Protein,Urine 30 mg/dL (Negative); Urine Appearance Clear (Clear); Urine Color Yellow (Yellow); Urine Specific Gravity >= 1.030 (1.001-1.035)
[2022-10-15 01:13] LABS: Blood, Urine Trace mg/dL (Negative)
[2022-10-15 01:17] LABS: Barbiturates Screen,Urine Negative (Negative); Benzodiazepines Screen,Urine Negative (Negative); Cannabinoid Screen,Urine Negative (Negative); Opiate Screen,Urine Negative (Negative); Phencyclidine Screen,Urine Negative (Negative)
[2022-10-15] MEDS: LORazepam 1 MG TABLET PO SCH ×5 (01:30→18:26)
[2022-10-15] MEDS: LACTULOSE 20 GM/30 ML UDCUP PO SCH ×2 (01:30→05:15)
[2022-10-15] MEDS: HYDROmorphone 1 MG/1 ML SYRINGE IV PRN ×4 (02:02→21:01)
[2022-10-15] MEDS: lisinopriL 20 MG TABLET PO SCH ×2 (02:25→09:47)
[2022-10-15 04:53] LABS: Basophils % 0.3 % (0.0-0.8); Eosinophils % 0.6 % (0.00-10.9); Hematocrit 27.6 VOL% (42.0-52.0); Immature Granulocytes % 0.3 %; Immature Granulocytes Absolute 0.01 #; Lymphocytes # 0.6 10*3/uL (1.4-4.0); Lymphocytes % 18.7 % (21.2-54.2); Mean Corpuscular HGB Conc 32.6 GM/DL (32-36); Mean Corpuscular Volume 91.7 FL (87-102); Monocytes # 0.3 10*3/uL (0.11-0.8); Monocytes % 9.5 % (1.7-12.7); Neutrophils % 70.6 % (38.7-73.9); Platelet Count 96 T/CUMM (130-400); Red Blood Count 3.01 MC/CUMM (3.8-5.5); Red Cell Distribution Width 15.9 % (9.3-17.3); White Blood Count 3.2 T/CUMM (4-12)
[2022-10-15 05:11] LABS: Albumin 2.6 G/DL (3.4-5.0); Calcium 6.5 MG/DL (8.5-10.1); INR 1.1; Osmolality,Calculated 272.7 MOS/KG (273-304); PT Patient Result 12.3 SECS (10.1-12.1); Partial Thromboplastin Time 28.3 SECS (23.7-32.9); Potassium 2.9 MMOL/L (3.5-5.1); Total Protein 5.6 G/DL (6.4-8.2)
[2022-10-15] MEDS ORDERED: MAGNESIUM SULF RIDER 2 GM/50 ML PREMIX IV PRN (06:44)
[2022-10-15] MEDS ORDERED: MAGNESIUM SULF RIDER 4 GM/100 ML PREMIX IV PRN (06:44)
[2022-10-15] MEDS ORDERED: POTASSIUM CHLORIDE 20 MEQ TABLET PO STA (06:44)
[2022-10-15] MEDS ORDERED: ENOXAPARIN 40 MG/0.4 ML SYRINGE SUBCUT SCH (09:00)
[2022-10-15] MEDS ORDERED: PNEUMOCOCCAL VACCINE (23 VALENT) 0.5 ML VIAL IM ONE (09:10)
[2022-10-15] MEDS: PANTOPRAZOLE 40 MG TABLET PO SCH ×2 (09:47→21:01)
[2022-10-15] MEDS: LACTATED RINGERS 1,000 ML IV SCH (11:44)
[2022-10-15] MEDS ORDERED: levETIRAcetam 500 MG/5 ML VIAL IV ONE (15:32)
[2022-10-15] MEDS ORDERED: LORazepam 1 MG TABLET PO PRN (18:18)
[2022-10-16] MEDS: LACTATED RINGERS 1,000 ML IV SCH ×2 (00:48→09:24)
[2022-10-16] MEDS: HYDROmorphone 1 MG/1 ML SYRINGE IV PRN ×3 (00:49→09:31)
[2022-10-16 04:56] LABS: Basophils % 0.4 % (0.0-0.8); Eosinophils # 0.1 10*3/uL (0.0-0.87); Eosinophils % 2.6 % (0.00-10.9); Hematocrit 34.4 VOL% (42.0-52.0); Lymphocytes # 0.8 10*3/uL (1.4-4.0); Lymphocytes % 27.9 % (21.2-54.2); Mean Platelet Volume 10.2 FL (9.6-12.0); Monocytes # 0.2 10*3/uL (0.11-0.8); Monocytes % 8.6 % (1.7-12.7); Neutrophils % 60.5 % (38.7-73.9); Platelet Count 110 T/CUMM (130-400); Red Blood Count 3.74 MC/CUMM (3.8-5.5); Red Cell Distribution Width 15.4 % (9.3-17.3); White Blood Count 2.7 T/CUMM (4-12)
[2022-10-16 05:16] LABS: Calcium 7.9 MG/DL (8.5-10.1); Osmolality,Calculated 270.8 MOS/KG (273-304); Potassium 3.5 MMOL/L (3.5-5.1)
[2022-10-16] MEDS: lisinopriL 20 MG TABLET PO SCH (09:25)
[2022-10-16] MEDS: PANTOPRAZOLE 40 MG TABLET PO SCH ×2 (09:26→09:28)
[2022-10-16] MEDS ORDERED: MAGNESIUM SULF RIDER 4 GM/100 ML PREMIX IV ONE (11:00)
[2022-10-16 12:44] VITALS: BP 150/103
== END 2022-10-16 13:34 | disposition home or self-care (01) | DRG 101 ==
LOC: EDUNIT# → EDBD → N.ED 20:45 → N.EDINP 10-15 00:19 → N.5E 10-15 14:48
PROVIDERS: ADMIT Internal Medicine; ATTEND Internal Medicine